=== PATIENT | female | born 1995 | race Two or more races ===

== ENCOUNTER 2016-11-22 21:30 | Inpatient (IN) | payer MEDICAID, OTHER ==
[~2016-11-22] VITALS: Ht 149.9 cm; Wt 59.0 kg
[2016-11-22] MEDS ORDERED: LACTATED RINGER'S 1,000 ML IV SCH (22:19)
[2016-11-22] MEDS ORDERED: LACT. RINGERS/OXYTOCIN 20UNITS 1,000 ML IV SCH (22:19)
[2016-11-22 22:24] LABS: Urine RBC None Seen /hpf (0 - 4)
[2016-11-22] MEDS ORDERED: NALBUPHINE HCL 10 MG/1ml INJECTION IV PRN (22:30)
[2016-11-22] MEDS ORDERED: LIDOCAINE 2%HCL (LOCAL ANESTH.) INJ 20ML MDV IJ PRN (22:30)
[2016-11-22] MEDS ORDERED: PHISODERM TOP SOLN 240ML BTL TOP PRN (22:30)
[2016-11-22] MEDS ORDERED: METHYLERGONOVINE MALEATE 0.2 MG/ML AMP IM PRN (22:30)
[2016-11-22] MEDS ORDERED: WITCH HAZEL-GLYCERIN PAD TOP PRN (22:30)
[2016-11-22] MEDS ORDERED: DERMOPLAST 60ML BOTTLE TOP PRN (22:30)
[2016-11-22 22:44] LABS: Urine Bilirubin Negative (Negative); Urine Color Yellow (Yellow); Urine Glucose Normal (Normal); Urine Ketone Negative (Negative); Urine Mucus FEW (None Seen); Urine Nitrite Negative (Negative); Urine Squamous Epithelial Cell MOD /hpf (<5)
[2016-11-22 22:55] LABS: Basophils # (auto) 0 uL; Basophils % (auto) 0.1 % (0.0-2.0); CONDITION AutoValidated; Eosinophils # (auto) 0 uL; Eosinophils % (auto) 0.4 % (0.0-7.0); Hematocrit 35.2 % (36.0-46.0); Hemoglobin 12.1 g/dL (12.2-16.2); Lymphocytes # (auto) 2.4 uL; Lymphocytes % (auto) 26.4 % (10.0-50.0); Mean Corpuscular Hemoglobin 32.7 pg (28.0-32.0); Mean Corpuscular Hgb Conc. 34.4 g/dL (32.0-36.0); Mean Corpuscular Volume 95.2 fL (80.0-100.0); Mean Platelet Volume 8.6 fL (7.4-10.4); Monocytes # (auto) 0.6 uL; Monocytes % (auto) 6.9 % (0.0-12.0); Neutrophils % (auto) 66.2 % (37.0-80.0); Platelet Count (auto) 219 10^3/uL (140-450); Red Cell Distribution Width 13.3 % (11.6-16.0); White Blood Cell 9.1 10^3/uL (4.4-10.8)
[2016-11-22] MEDS ORDERED: PROMETHAZINE HCL 25 MG/ML 1ML IV PRN (23:00)
[2016-11-22 23:08] LABS: Partial Thromboplastin Time 25.4 sec (22.64-33.71); Prothrombin Time 9.4 sec (9.37-12.3)
[2016-11-22 23:09] LABS: Albumin 2.8 g/dL (3.4-5.0); BUN/Creatinine Ratio 12.5; Calcium 8.4 mg/dL (8.5-10.1); Potassium 3.7 mmol/L (3.5-5.1)
[2016-11-22 23:13] LABS: INR 0.86 (0.9-1.15)
[2016-11-22 23:13] LABS: Urine Blood 1+ /uL (Negative)
[2016-11-22 23:14] LABS: Bilirubin, Total 0.7 mg/dL (0.2-1.0); Total Protein 7.3 g/dL (6.4-8.2)
== END 2016-11-22 23:32 | disposition home or self-care (01) | DRG 565 ==
LOC: LDRP 21:30 → OBSVTOIN 22:20 → LDRP 22:22
PROVIDERS: ADMIT Specialist; ATTEND Specialist
DX: O47.1 False labor at or after 37 completed weeks of gestation (principal); Z3A.39 39 weeks gestation of pregnancy
CPT/HCPCS: 36415; 59025; 80053; 80307; 81001; 81002; 85025; 85610; 85730; 86850; 86900; 86901; 96365; 96366; G0378